=== PATIENT | male | born 1960 | race Caucasian/White ===

== ENCOUNTER 2019-10-21 11:41 | Emergency (ER) | payer OTHER ==
[~2019-10-21] VITALS: Ht 185.4 cm; Wt 82.2 kg
[2019-10-21 11:44] VITALS: BP 176/100
[2019-10-21] MEDS ORDERED: METHOCARBAMOL 750 MG TABLET PO ONE (12:30)
[2019-10-21] MEDS ORDERED: KETOROLAC 30 MG/1 ML IM ONE (12:30)
[2019-10-21] MEDS ORDERED: KETOROLAC 30 MG/1 ML ONE (12:33)
[2019-10-21] MEDS ORDERED: METHOCARBAMOL 750 MG TABLET ONE (12:33)
[2019-10-21] MEDS ORDERED: ACET-1600 PO (12:44)
--- NOTE | 2019-10-21 13:39 | NUR ---
Patient given discharge instructions and they have confirmed that they understand the instructions. Patient ambulatory with steady gait.
== END 2019-10-21 13:40 | disposition home or self-care (01) ==
LOC: ED 13:19
DX: S16.1XXA Strain of muscle, fascia and tendon at neck level, initial encounter (principal); F17.210 Nicotine dependence, cigarettes, uncomplicated; X58.XXXA Exposure to other specified factors, initial encounter; Y93.89 Activity, other specified; Y92.89 Other specified places as the place of occurrence of the external cause; Y99.8 Other external cause status
CPT/HCPCS: 72050; 73030; 96372; 99283; J1885